=== PATIENT | male | born 1950 | race Caucasian/White ===

== ENCOUNTER 2020-06-24 14:49 | Emergency (ER) | payer MEDICARE, MEDICAID, SELFPAY ==
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
[2020-06-24 15:13] VITALS: BP 168/84; PULSE 85; RESP 20; TEMP 36.8; O2SAT 95
[2020-06-24] MEDS: TETANUS,DIPHTHERIA,AC PERTUSSIS ADULT 0.5 ML (ADACEL) IM (15:32)
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
[2020-06-24 16:50] VITALS: BP 139/79; PULSE 89; RESP 20; TEMP 36.7; O2SAT 98
== END 2020-06-24 17:02 | disposition home or self-care (01) ==
PROVIDERS: Emergency Provider Emergency Medicine
DX: S32.040A Wedge compression fracture of fourth lumbar vertebra, initial encounter for closed fracture (principal); V29.9XXA Motorcycle rider (driver) (passenger) injured in unspecified traffic accident, initial encounter
CPT/HCPCS: 72100; 73070; 73560; 90471; 90715; 99283; 99284

== ENCOUNTER 2020-06-28 14:03 | Outpatient (CLI) | payer MEDICARE, MEDICAID, SELFPAY ==
--- NOTE | ~2020-06-28 | XR_ITS ---
EXAMINATION: XR forearm LT 2V DATE: 06/28/2020 14:49 INDICATION: Left wrist pain and swelling. TECHNIQUE: 2 views of left forearm were obtained. COMPARISON: None. FINDINGS: Bone alignment is normal. No fracture. Joint spaces are well maintained. There is no elbow joint effusion. IMPRESSION: 1. No fracture. Reviewed, dictated and finalized at location A. IMPRESSION: 1. No fracture.
--- NOTE | ~2020-06-28 | XR_ITS ---
EXAMINATION: XR humerus LT DATE: 06/28/2020 14:48 INDICATION: Left upper limb swelling. TECHNIQUE: 2 views of left humerus were obtained. COMPARISON: None. FINDINGS: Bone alignment is normal. No fracture. There is mild osteoarthritis of acromioclavicular brenda int and glenohumeral joint. IMPRESSION: 1. Mild polyarticular osteoarthritis. Reviewed, dictated and finalized at location A.
--- NOTE | ~2020-06-28 | US_ITS ---
EXAMINATION: US soft tissue UE LT DATE: 06/28/2020 15:10 INDICATION: Left forearm contusion. TECHNIQUE: Multiple grayscale and Doppler ultrasound images of the left forearm were obtained. COMPARISON: Left forearm radiograph 06/28/2020 FINDINGS: In the patient's area of concern near the elbow, there is a small volume of subcutaneous he matoma. IMPRESSION: 1. Small volume of subcutaneous hematoma near the elbow. Reviewed, dictated and finalized at location A.
--- NOTE | ~2020-06-28 | XR_ITS ---
EXAMINATION: XR wrist LT min 3V DATE: 06/28/2020 14:48 INDICATION: Left wrist pain and swelling. TECHNIQUE: 4 views of left wrist were obtained. COMPARISON: None. FINDINGS: Bone alignment is normal. No fracture. There is mild osteoarthritis of triscaphe joint, fir st carpometacarpal joint, and second metacarpophalangeal joint. IMPRESSION: 1. Mild polyarticular osteoarthritis. Reviewed, dictated and finalized at location A.
== END 2020-06-28 14:04 | disposition home or self-care (01) ==
PROVIDERS: PCP Nurse Practitioner; Visit Provider Nurse Practitioner
DX: S50.12XA Contusion of left forearm, initial encounter (principal); M25.532 Pain in left wrist; S40.022A Contusion of left upper arm, initial encounter
CPT/HCPCS: 73060; 73090; 73110; 76882

== ENCOUNTER 2021-04-17 13:52 | Outpatient (CLI) | payer MEDICARE, MEDICAID, SELFPAY ==
--- NOTE | ~2021-04-17 | CT_ITS ---
EXAMINATION: CT lung screening DATE: 04/17/2021 14:12 INDICATION: Personal history of tobacco dependence PERSONAL HISTORY OF TOBACCO DEPENDENCE TECHNIQUE: Computed tomography (CT) of the chest was performed without intravenous contrast. Addition al 3D reconstructions utilizing coronal maximum intensity projection (MIP) were performed. Automated exposure control and iterative reconstruction technique were employed. The dose-length product was 25 1.66 mGy-cm. COMPARISON: None FINDINGS: Moderate upper lung predominant emphysema. Mild discoid atelectasis in the lingula along the caudal a spect of the major fissure. Additional mild discoid atelectasis at the right middle lobe. Calcified l eft lower lobe nodule, calcified left hilar and mediastinal lymph nodes as well as a couple tiny sple lizette calcific lesions, all consistent with old granulomatous disease. No suspicious pulmonary nodules, pneumonia, pulmonary edema or pleural effusion. Heart size is normal. Atherosclerotic coronary arter y calcification. No pericardial effusion. Thoracic aorta is normal in caliber. No pathologically enla rged thoracic lymphadenopathy. Chronic T9 burst fracture with 80% central vertebral body height loss and 2 mm retropulsion. Minimal likely physiologic anterior wedging at T11 and T12. IMPRESSION: 1. Lung-RADS category 1: Negative. Continue annual screening with noncontrast low-dose chest CT in 12 months. 2. Moderate emphysema. Reviewed, dictated and finalized at location A. 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 Lung-RADS category 1: Negative. Continue annual screening with noncontrast l ow-dose chest CT in 12 months. 2. Moderate emphysema.
== END 2021-04-17 13:53 | disposition home or self-care (01) ==
LOC: CHSIMG 13:55
PROVIDERS: PCP Nurse Practitioner; Visit Provider Nurse Practitioner
DX: Z12.2 Encounter for screening for malignant neoplasm of respiratory organs (principal); F17.210 Nicotine dependence, cigarettes, uncomplicated
CPT/HCPCS: 71271

== ENCOUNTER 2022-02-26 18:34 | Emergency (ER) | payer MEDICARE, MEDICAID, SELFPAY ==
--- NOTE | ~2022-02-26 | XR_ITS ---
EXAMINATION: XR chest 1V portable Exam Date/Time: 02/26/2022 19:20 [employer] HISTORY: SOB, PRODUCTIVE COUGH X 2 WEEKS WORSENING TODAY Comparison: None available. RESULT: Lines, tubes, and devices: None. Lungs and pleura: Stable diffuse reticulonodular opacities likely representing senescent change. Ill -defined patchy areas of groundglass opacity in the bilateral mid lungs. Cardiomediastinal silhouette: Stable. Other: No acute osseous or upper abdominal finding. IMPRESSION: Bilateral midlung groundglass opacities may reflect summation artifact or infection, including atypic al/viral etiology. Reviewed, dictated and finalized at location K. [employer] MECH[employer]IC IMPRESSION: Bilateral midlung groundglass opacities may reflect summation artifact or infec tion, including atypical/viral etiology.
[2022-02-26 18:40] VITALS: BP 181/97; PULSE 90; RESP 18; TEMP 36.4; O2SAT 96
--- NOTE | 2022-02-26 18:58 | ED.URI ---
HPI - URI/Sore Throat General Chief Complaint: Upper Respiratory Infection Stated Complaint: trouble breathing Time Seen by Provider: 02/26/22 18:57 Source: patient Mode of arrival: ambulatory History of Present Illness HPI Narrative: 71-year-old male, smoker with a history of hypertension, dyslipidemia, COPD presents to the ER with a 2 week history of -- cough with yellow sputum -- weakness -- lethargic --SOB --Fever MD elicited complaint: fever and cough Pertinent past history: COPD Onset (ago): week(s) ( symptoms for the past 2 weeks) Consistency: intermittent Severity: moderate Description of mucous: yellow Exacerbating factors: nothing Relieving factors: nothing Associated symptoms: fever, myalgias, cough and shortness of breath Treatments prior to arrival: none Related Data Home Medications Medication Instructions Recorded Confirmed albuterol sulfate 90 mcg/actuation 2 puff inhalation Q4H PRN 06/24/20 02/26/22 aerosol inhaler (Ventolin HFA) Shortness Of Breath atenolol 50 mg tablet 50 mg PO DAILY 06/24/20 02/26/22 clonazepam 0.5 mg tablet (Klonopin) 0.5 mg PO HS 06/24/20 02/26/22 clopidogrel 75 mg tablet (Plavix) 75 mg PO DAILY 06/24/20 02/26/22 lisinopril 10 mg tablet 10 mg PO HS 06/24/20 02/26/22 mirtazapine 45 mg tablet 45 mg PO HS 06/24/20 02/26/22 rosuvastatin 20 mg tablet 20 mg PO HS 06/24/20 02/26/22 umeclidinium 62.5 mcg/actuation 1 inh inhalation DAILY 06/24/20 02/26/22 blister powder for inhalation (Incruse Ellipta) venlafaxine 150 mg 150 mg PO HS 06/24/20 02/26/22 capsule,extended release 24 hr Allergies Allergy/AdvReac Type Severity Reaction Status Date / Time No Known Allergies Allergy Verified 02/26/22 18:51 Review of Systems Review of Systems: All systems reviewed & are unremarkable except as noted in HPI and below Constitutional: Constitutional: Reports as per HPI, Reports no additional constitutional complaints, Reports chills, Reports fatigue and Reports fever(s) Eyes: Eyes: Reports as per HPI and Reports no additional eye complaints ENT: Reports system reviewed and no additional complaints, except as documented and Reports as per HPI Cardiovascular: Cardiovascular: Reports as per HPI and Reports no additional cardiovascular complaints Respiratory: Respiratory: Reports as per HPI, Reports no additional respiratory complaints, Reports chest congestion, Reports cough, Reports dyspnea and Reports wheezing Gastrointestinal: Gastrointestinal: Reports as per HPI and Reports no additional gastrointestinal complaints Genitourinary: Genitourinary: Reports no additional male genitourinary complaints and Reports as per HPI Musculoskeletal: Musculoskeletal: Reports no additional musculoskeletal complaints and Reports as per HPI Integumentary/Breasts: Skin/Breast: Reports system reviewed and no additional complaints, except as docu and Reports as per HPI Neurologic: Reports system reviewed and no additional complaints, except as documented and Reports as per HPI Psychiatric: Psychiatric: Reports no additional psychiatric complaints and Reports as per HPI Endocrine: Endocrine: Reports no additional endocrine complaints and Reports as per HPI Hematologic/Lymphatic: Hematologic/Lymphatic: Reports no additional hematologic/lymphatic complaints and Reports as per HPI Allergic/Immunologic: Allergic/Immunologic: Reports no additional allergic/immunologic complaints and Reports as per HPI [facility] Past Medical History Medical History (Updated 02/26/22 @ 20:30 by Felix West MD) COPD (chronic obstructive pulmonary disease) Dyslipidemia HLD (hyperlipidemia) Hypertension [place], old Social History Social History (Updated 02/26/22 @ 19:07 by Felix West MD) Social History: smoker- 5 cigarettes a day Smoking status: Current every day smoker Gender identity (if verbalized by the patient): Male Exam Const: Nutritional Appearance: well nourished Orientation/consciou
--- NOTE | 2022-02-26 19:10 | ECG_ITS ---
Measurements Intervals [place] Rate: 78 P: -1 OK: 112 QRS: 56 QRSD: 94 T: 52 QT: 358 QTc: 408 Interpretive Statements SINUS RHYTHM WITH SHORT OK INTERVAL BASELINE ARTIFACT- I, II, III, AVR, AVL, AVF, V1-V6 BORDERLINE ECG NO PREVIOUS ECG AVAILABLE FOR COMPARISON Electronically Signed On 02-26-2022 23:05:04 WOOD STAINER by Apollo Kingsley D.O.
[2022-02-26 19:31] LABS: Influenza A QL RT-PCR Negative (Negative); Influenza B QL RT-PCR Negative (Negative); SARS-CoV-2 RNA PCR Negative (Negative)
[2022-02-26 19:41] LABS: Basophils Absolute Auto 0.01 K/mm3 (0.00-0.10); Basophils Percent Auto 0.1 % (0.0-1.0); Eosinophils Absolute Auto 0.18 K/mm3 (0.02-0.50); Eosinophils Percent Auto 1.8 % (1.0-6.0); Hematocrit 41.1 % (37.0-46.0); Hemoglobin 13.9 g/dL (12.4-15.3); Immature Granulocyte Absolute 0.02 K/mm3 (0.00-0.00); Immature Granulocyte Percent A 0.2 % (0.0-0.0); Lymphocytes Absolute Auto 4.39 K/mm3 (1.10-4.50); Lymphocytes Percent Auto 44.9 % (18.0-42.0); Mean Corpuscular HGB Conc 33.8 g/dL (32.0-36.0); Mean Corpuscular Volume 94.5 fL (78.0-102.0); Mean Platelet Volume 10.6 fl (8.7-11.0); Monocytes Absolute Auto 0.86 K/mm3 (0.10-0.90); Monocytes Percent Auto 8.8 % (2.0-11.0); Neutrophils Absolute Auto 4.3 K/mm3 (1.7-7.2); Neutrophils Percent Auto 44.2 % (50.0-70.0); Platelet Count Result 232 K/mm3 (150-420); Red Blood Count 4.35 M/mm3 (4.70-6.10); Red Cell Distribution Width 13.4 % (11.6-14.4); White Blood Count 9.8 K/mm3 (4.8-10.8)
--- NOTE | 2022-02-26 19:51 | PC.NURSE ---
Care resumed, pt sitting bedside, no distress noted, VSS. Pt ambulated steadily to BR.
[2022-02-26 19:56] LABS: Partial Thromboplastin Time 25.9 SEC (23.90-30.70); Prothrombin Time 11.4 Seconds (9.50-12.10)
[2022-02-26 20:06] LABS: Alanine Aminotransferase 27 U/L (16-63); Albumin Level 3.7 g/dL (3.4-5.0); Alkaline Phosphatase 73 U/L (46-116); Anion Gap 8 mmol/L (8-16); Aspartate Amino Transferase 18 U/L (15-37); Bilirubin,Total 0.3 mg/dL (0.00-1.00); Blood Urea Nitrogen 20 mg/dL (7-18); Carbon Dioxide 28 mmol/L (21-32); Chloride 109 mmol/L (98-108); Estimated CRCL calculation 62 ml/min; Estimated Glomerular Filt Rate > 60; Glucose 104 mg/dL (70-99); NT Pro B Type Natriuretic Pept 300 pg/mL (0-125); Osmolality Calculated 302 mOsm/kg (285-295); Potassium 4.3 mmol/L (3.5-5.1); Sodium 145 mmol/L (136-145); Total Protein 7.2 g/dL (6.4-8.2)
[2022-02-26] MEDS: AZITHROMYCIN 250 MG TABLET 500 MG PO (20:27)
[2022-02-26] MEDS: methylPREDNISolone SOD SUCC 125 MG VIAL IM (20:28)
[2022-02-26 20:33] VITALS: PULSE 72; RESP 20
[2022-02-26] MEDS: IPRATROPIUM 0.5 MG/ALBUTEROL SULFATE 2.5 MG AMPUL.NEB 3 ML INHALATION (20:33)
[2022-02-26 20:51] VITALS: BP 156/80; PULSE 87; RESP 18; TEMP 36.4; O2SAT 98
== END 2022-02-26 20:55 | disposition home or self-care (01) ==
PROVIDERS: Emergency Provider Internal Medicine Critical Care Medicine; PCP Nurse Practitioner
DX: J44.1 Chronic obstructive pulmonary disease with (acute) exacerbation (principal); I10 Essential (primary) hypertension; Z20.822 Contact with and (suspected) exposure to COVID-19; E78.5 Hyperlipidemia, unspecified; F17.200 Nicotine dependence, unspecified, uncomplicated
CPT/HCPCS: 36415; 71045; 80053; 83605; 83880; 84484; 85025; 85610; 85730; 87636; 93005; 94640; 96372; 99284; A9270; J2930